=== PATIENT | male | born 1950 | race Caucasian/White ===

== ENCOUNTER 2017-03-03 16:17 | Emergency (ER) | payer OTHER ==
[~2017-03-03] VITALS: Ht 162.6 cm; Wt 69.1 kg
[2017-03-03 16:38] VITALS: BP 1444/82
== END 2017-03-03 19:46 | disposition home or self-care (01) ==
LOC: ED 16:17
DX: Z46.89 Encounter for fitting and adjustment of other specified devices (principal); N40.0 Benign prostatic hyperplasia without lower urinary tract symptoms; R03.0 Elevated blood-pressure reading, without diagnosis of hypertension; Z88.0 Allergy status to penicillin; Z46.6 Encounter for fitting and adjustment of urinary device

== ENCOUNTER 2017-11-03 19:37 | Emergency (ER) | payer OTHER ==
[~2017-11-03] VITALS: Ht 165.1 cm; Wt 70.3 kg
[2017-11-03 19:56] VITALS: Ht 165.1 cm; Wt 70.3 kg
[2017-11-03 22:52] VITALS: BP 129/74
== END 2017-11-03 22:52 | disposition home or self-care (01) ==
LOC: ED 19:37
DX: N39.0 Urinary tract infection, site not specified (principal); R68.83 Chills (without fever); Z88.0 Allergy status to penicillin
CPT/HCPCS: J1885

== ENCOUNTER 2017-11-05 11:55 | Emergency (ER) | payer OTHER ==
[~2017-11-05] VITALS: Ht 165.1 cm; Wt 65.3 kg
[2017-11-05 12:14] VITALS: Ht 165.1 cm; Wt 65.3 kg
[2017-11-05 15:30] VITALS: BP 123/78
== END 2017-11-05 15:30 | disposition home or self-care (01) ==
LOC: ED 11:55
DX: Z46.6 Encounter for fitting and adjustment of urinary device (principal); Z88.0 Allergy status to penicillin